=== PATIENT | male | born 1995 ===

== ENCOUNTER 2024-07-09 21:51 | Emergency (ER) | payer OTHER ==
[~2024-07-09] VITALS: Ht 167.6 cm; Wt 72.7 kg
[2024-07-09 21:51] VITALS: TEMP 97.9
[2024-07-09 22:30] VITALS: BP 110/73; PULSE 85; RESP 15; O2SAT 96
[2024-07-09 22:46] LABS: ANION GAP 8 mmol/L (8-16); CALCIUM, TOTAL 9.2 mg/dL (8.8-10.5); CARBON DIOXIDE 31 mmol/L (22-29); CHLORIDE 101 mmol/L (98-107); CREATININE 1.09 mg/dL (0.60-1.30); GLOMERULAR FILTR. RATE CALC > 60 mL/min (>60); GLUCOSE,RANDOM 95 mg/dL (70-110); POTASSIUM 3.8 mmol/L (3.5-5.1); SODIUM SERUM 140 mmol/L (136-145); UREA NITROGEN, BLOOD 9 mg/dL (7-18)
[2024-07-09 22:47] LABS: BASOPHILS % (AUTO) 1.3 % (0.0-2.0); EOSINOPHILS % (AUTO) 3.6 % (1.0-6.0); HEMATOCRIT 50.9 % (41-53); HEMOGLOBIN 17.3 g/dL (13.5-17.5); LYMPHOCYTES # (AUTO) 2.6 K/uL (1.0-4.8); MEAN CORPUSCULAR HEMOGLOBIN 30.1 pg (26.0-34.0); MEAN CORPUSCULAR HGB CONC 33.9 G/dL (31.0-37.0); MEAN CORPUSCULAR VOLUME 89 fL (80-100); MONOCYTES # (AUTO) 0.7 K/uL (0.1-1.0); NEUTROPHILS % (AUTO) 57.1 % (40.0-70.0); PLATELET COUNT (AUTO) 271 K/uL (150-450); RED BLOOD CELL COUNT(AUTO) 5.74 MIL/uL (4.50-5.90); RED CELL DISTRIBUTION WIDTH 13.7 % (11.5-14.5); WHITE BLOOD COUNT (AUTO) 8.8 K/uL (4.5-11.0)
[2024-07-09] MEDS: FAMOTIDINE 20 MG TABLET PO ONE (23:17)
[2024-07-09] MEDS: MAG HYDROX/ALUMINUM HYD/SIMETH 30 ML SUSPENSION UDCUP PO ONE (23:17)
[2024-07-09 23:39] LABS: TROPONIN I-HIGH SENSITIVITY 21 ng/L (<76)
[2024-07-09] MEDS ORDERED: FAMO20 PO (23:55)
== END 2024-07-10 00:17 | disposition home or self-care (01) ==
LOC: EMS 21:51
DX: K21.9 Gastro-esophageal reflux disease without esophagitis (principal); R07.89 Other chest pain; F20.9 Schizophrenia, unspecified; F31.9 Bipolar disorder, unspecified; F17.210 Nicotine dependence, cigarettes, uncomplicated
CPT/HCPCS: 71045; 80048; 84484; 85025; 93005; 99285; 36415-L1; 36415-TC

== ENCOUNTER 2025-02-28 01:03 | Emergency (ER) | payer OTHER ==
[~2025-02-28] VITALS: Ht 170.2 cm; Wt 59.1 kg
[~2025-02-28 01:03] MED LIST: FAMO20 PO
[2025-02-28] MEDS: LORazepam 2 MG/ML VIAL IM ONE (02:02)
[2025-02-28 03:45] VITALS: TEMP 97.9
[2025-02-28 04:30] LABS: PLATELET COUNT (AUTO) 284 K/uL (150-450); RED BLOOD CELL COUNT(AUTO) 5.36 MIL/uL (4.50-5.90); RED CELL DISTRIBUTION WIDTH 14.0 % (11.5-14.5); WHITE BLOOD COUNT (AUTO) 15.1 K/uL (4.5-11.0)
[2025-02-28 04:42] LABS: CALCIUM, TOTAL 9.4 mg/dL (8.8-10.5); CREATININE 1.91 mg/dL (0.60-1.30); GLOMERULAR FILTR. RATE CALC 41 mL/min (>60); GLUCOSE,RANDOM 83 mg/dL (70-110); SODIUM SERUM 133 mmol/L (136-145); UREA NITROGEN, BLOOD 36 mg/dL (7-18)
[2025-02-28 04:44] LABS: ALCOHOL, BLOOD (SERUM) < 3 mg/dL (0-10)
[2025-02-28 04:50] LABS: TROPONIN I-HIGH SENSITIVITY 16 ng/L (<76)
[2025-02-28 05:01] LABS: ASPARTATE AMINOTRANSFERASE 172 U/L (15-37); TOTAL PROTEIN, SERUM 8.1 g/dL (6.4-8.2)
[2025-02-28 05:51] LABS: CREATINE KINASE, TOTAL ONLY 2192 U/L (39-308)
[2025-02-28 08:56] VITALS: BP 112/76; PULSE 84; RESP 16; O2SAT 97
== END 2025-02-28 09:16 | disposition home or self-care (01) ==
LOC: EMS 01:27
DX: F15.10 Other stimulant abuse, uncomplicated (principal); R07.9 Chest pain, unspecified; R45.1 Restlessness and agitation; F20.9 Schizophrenia, unspecified; F31.9 Bipolar disorder, unspecified; F17.210 Nicotine dependence, cigarettes, uncomplicated; Z79.899 Other long term (current) drug therapy
CPT/HCPCS: 99291; 71045; 80048; 80076; 82550; 83880; 84484; 85025; 36415; 93005; 96372; G0480; J1200; J1630; J2060

== ENCOUNTER 2025-03-14 23:45 | Emergency (ER) | payer OTHER ==
[~2025-03-14] VITALS: Ht 167.6 cm; Wt 71.8 kg
[2025-03-15 00:16] VITALS: BP 113/57; PULSE 89; RESP 16; TEMP 98; O2SAT 100
[2025-03-15] MEDS ORDERED: DOXY-354 PO (01:00)
[2025-03-15] MEDS: IBUPROFEN 400 MG TABLET PO ONE (01:19)
[2025-03-15] MEDS: DOXYCYCLINE HYCLATE 100 MG TABLET PO ONE (01:19)
== END 2025-03-15 13:19 | disposition home or self-care (01) ==
LOC: EMS 23:54
DX: L03.113 Cellulitis of right upper limb (principal); F20.9 Schizophrenia, unspecified; F31.9 Bipolar disorder, unspecified; F17.210 Nicotine dependence, cigarettes, uncomplicated; F15.90 Other stimulant use, unspecified, uncomplicated; Z79.899 Other long term (current) drug therapy
CPT/HCPCS: 99283